=== PATIENT | male | born 1990 | race Caucasian/White ===

== ENCOUNTER 2021-10-30 02:09 | Emergency (ER) | payer OTHER ==
[~2021-10-30] VITALS: Ht 193 cm; Wt 161.0 kg
[2021-10-30 02:23] VITALS: BP 143/76
--- NOTE | 2021-10-30 02:28 | NUR ---
Ilda moffett in [facility] - 10/30/21 at 0329 by [email or web address] PT AMBULATORY TO BED 03
--- NOTE | 2021-10-30 02:28 | NUR ---
PT AMBULATORY TO BED 11
[2021-10-30] MEDS ORDERED: KETOROLAC 15 MG/ML VIAL IM ONE (03:50)
--- NOTE | 2021-10-30 04:00 | NUR ---
PT WAS IM TORADOL FOR MUSCULAR PAIN. XRAY OF LEFT ANKLE TAKEN AT BEDSIDE.
--- NOTE | 2021-10-30 05:10 | NUR ---
PT DISHCARGED TO HOME AFTER LEFT ANKLE XRAY RESULTS WERE NEGATIVE FOR FRACTURE. MD ALEXANDER SPOKE WITH PT AT BEDSIDE. DISCHARGE INSTRUCTIONS EXPLAINED AT BEDSIDE. PT VERBELIZED UNDERSTANDING. PT LEFT WITH DISCHARGE INSTRUCTIONS IN HAND. ARM BAND OFF. HE AMBULATED WITH A STEADY GAIT IN STABLE CONDITION.
[2021-10-30 05:21] VITALS: BP 152/93
== END 2021-10-30 05:17 | disposition home or self-care (01) ==
LOC: MED 02:09
DX: M25.572 Pain in left ankle and joints of left foot (principal); I10 Essential (primary) hypertension; F12.90 Cannabis use, unspecified, uncomplicated
CPT/HCPCS: 73610; 96372; 99283; J1885; Q0092